=== PATIENT | female | born 1965 | race African-American/Black ===

== ENCOUNTER 2017-01-21 14:20 | Emergency (ER) | payer BC ==
[~2017-01-21 14:20] MED LIST: LORTAB 5 PO; NAP500 PO
== END 2017-01-21 14:38 | disposition home or self-care (01) ==
LOC: ER 14:20
DX: S00.81XA Abrasion of other part of head, initial encounter (principal); Z88.5 Allergy status to narcotic agent; Z79.899 Other long term (current) drug therapy; V89.2XXA Person injured in unspecified motor-vehicle accident, traffic, initial encounter
CPT/HCPCS: 70450; 72125; 73130-LT; 93005; 96374; 96375; 99285; J1170; J2405